=== PATIENT | male | born 1975 | race Caucasian/White ===

== ENCOUNTER 2024-06-22 05:00 | Day surgery (SDC) | payer OTHER ==
[2024-06-20 16:37] VITALS: BMI 28.2
[2024-06-22 09:58] VITALS: TEMP 97.6
[2024-06-22 10:02] VITALS: RESP 18
[2024-06-22 11:18] VITALS: BP 121/84; PULSE 66
== END 2024-06-22 10:35 | disposition home or self-care (01) ==
LOC: JASU-ENDO 05:00
PROVIDERS: ATTEND Internal Medicine Gastroenterology
PROC: 0DJD8ZZ Inspection of Lower Intestinal Tract, Via Natural or Artificial Opening Endoscopic (ICD-10-PCS; principal; 2024-06-22 09:30)
DX: Z12.11 Encounter for screening for malignant neoplasm of colon (principal)